=== PATIENT | male | born 1950 | race Caucasian/White ===

== ENCOUNTER 2016-12-31 11:49 | Inpatient (IN) | payer OTHER, BC ==
[~2016-12-31] VITALS: Ht 180.3 cm; Wt 54.1 kg
[~2016-12-31 11:49] MED LIST: ADVIL200 M1 PO; AMLODIPINE-BEN1 EACH PO; ASPIRIN325 MG PO; Aldactone PO; Allegra PO; Aspirin PO; Bentyl PO; CALTRATE600 MG PO; CIPRO500 M1 PO; CIPRO500 MG PO; DETROL; DETROL LA4 MG PO; EFFIENT10 MG PO; Effient PO; FEXOFENADINE H180 M1 PO; LIPITOR40 MG PO; LOTREL 10/21 CAPSULE PO; LOTREL PO; Lipitor PO; METOPROLOL SUCC50 MG PO; Metoprolol Succinate PO; NITROSTAT0.4 MG PO; Nitrostat PO; PROTONIX40 MG PO; Tylenol/Codeine #3 PO; ZOFRAN4 MG PO; Zofran PO
[2016-12-31 13:21] LABS: HEMATOCRIT 41.9 % (38.0-50.0); MCH 29.5 PG (29.0-34.0); MCHC 33.4 G/DL (30.0-36.0); MCV 88.4 FL (86-99); MEAN PLAT.VOLUME 8.7 uM^3 (9.0-12.4); PLATELET COUNT 378 K/uL (156-360); RBC DIS.WIDTH-CV 14.7 % (11.8-14.6); RBC DIS.WIDTH-SD 46.8 % (39-53); RED BLOOD COUNT 4.74 M/uL (4.00-5.50); WHITE BLOOD COUNT 10.7 K/uL (4.1-10.2)
[2016-12-31 13:32] LABS: CHLORIDE 104 mEq/L (99-109); POTASSIUM 4.2 mEq/L (3.7-5.4); SODIUM 135 mEq/L (136-147)
[2016-12-31 13:33] LABS: GLUCOSE 82 mg/dL (70-99)
[2016-12-31 13:35] LABS: ANION GAP 7 MEQ/L (2-14)
[2016-12-31 13:37] LABS: GFR ESTIMATE (CALCULATED) > 59 mL/min/
[2016-12-31 13:38] LABS: UREA NITROGEN (BUN) 11 mg/dL (9-23)
[2016-12-31 15:59] LABS: ADD MIUA? YES; BILIRUBIN NEGATIVE; BLOOD NEGATIVE; COLOR YELLOW ((YELLOW)); GLUCOSE (STRIP) NEGATIVE; KETONES NEGATIVE; LEUKOCYTES TRACE; NITRITE NEGATIVE; PROTEIN (STRIP) NEGATIVE; SPECIFIC GRAVITY 1.017 (1.000-1.030); UROBILINOGEN 0.2 MG/DL (0.2-1.0)
[2016-12-31 16:19] LABS: BACTERIA NONE SEEN /HPF; EPITHELIAL CELLS NONE SEEN /HPF; MUCUS 1+ /LPF; RED BLOOD CELLS 0-5 /HPF (0-5); UCUL ADDED? NO
[2016-12-31] MEDS ORDERED: FLONASE16 G1 BOTH NARES (17:38)
[2016-12-31] MEDS ORDERED: ASPIRIN325 MG PO (17:39)
[2016-12-31] MEDS ORDERED: LIPITOR40 MG PO (17:40)
[2016-12-31] MEDS ORDERED: VALSARTAN40 MG PO (17:40)
[2016-12-31] MEDS ORDERED: ALLEGRA ALLERG180 MG PO (17:41)
[2016-12-31] MEDS ORDERED: NITROSTAT0.4 MG SL (17:42)
[2016-12-31] MEDS ORDERED: METOPROLOL SUCC50 MG PO (17:42)
[2016-12-31] MEDS ORDERED: ALDACTONE25 MG PO (17:43)
[2016-12-31] MEDS ORDERED: EFFIENT10 MG PO (17:43)
[2016-12-31 20:43] LABS: TROP-I INTERPRETATION NEGATIVE; TROPONIN-I < 0.01 ng/mL (0.0-0.30)
[2016-12-31 21:32] VITALS: BP 126/70
[2017-01-01 00:08] VITALS: BP 92/50
[2017-01-01 04:19] VITALS: BP 119/58
[2017-01-01 06:50] LABS: HEMATOCRIT 36.6 % (38.0-50.0); MCH 30.2 PG (29.0-34.0); MCHC 33.6 G/DL (30.0-36.0); MCV 89.9 FL (86-99); MEAN PLAT.VOLUME 8.8 uM^3 (9.0-12.4); PLATELET COUNT 297 K/uL (156-360); RBC DIS.WIDTH-CV 14.5 % (11.8-14.6); RBC DIS.WIDTH-SD 47.7 % (39-53); RED BLOOD COUNT 4.07 M/uL (4.00-5.50)
[2017-01-01 06:55] LABS: WHITE BLOOD COUNT 4.4 K/uL (4.1-10.2)
[2017-01-01 06:58] LABS: ANION GAP 4 MEQ/L (2-14); CHLORIDE 106 MEQ/L (99-109); GFR ESTIMATE (CALCULATED) > 59 mL/min/; GLUCOSE 156 mg/dL (70-99); POTASSIUM 4.6 MEQ/L (3.7-5.4); SAMPLE HEMOLYSIS CHECK 0; SAMPLE ICTERIC CHECK 0; SAMPLE LIPEMIA CHECK 0; SODIUM 134 MEQ/L (136-147); UREA NITROGEN (BUN) 9 mg/dL (9-23)
[2017-01-01 06:59] LABS: TROP-I INTERPRETATION NEGATIVE; TROPONIN-I < 0.01 ng/mL (0.0-0.30)
[2017-01-01 08:32] VITALS: BP 105/72
[2017-01-01 11:51] VITALS: BP 113/68
[2017-01-01 13:44] LABS: TROP-I INTERPRETATION NEGATIVE; TROPONIN-I < 0.01 ng/mL (0.0-0.30)
[2017-01-01 20:10] VITALS: BP 114/67
[2017-01-02] VITALS (7 sets, daily range): BP systolic 91–121; BP diastolic 50–80
[2017-01-02 07:40] LABS: ANION GAP 6 MEQ/L (2-14); CHLORIDE 106 MEQ/L (99-109); GFR ESTIMATE (CALCULATED) > 59 mL/min/; GLUCOSE 137 mg/dL (70-99); POTASSIUM 4.6 MEQ/L (3.7-5.4); SAMPLE HEMOLYSIS CHECK 0; SAMPLE ICTERIC CHECK 0; SAMPLE LIPEMIA CHECK 0; SODIUM 136 MEQ/L (136-147); UREA NITROGEN (BUN) 12 mg/dL (9-23)
[2017-01-02 08:29] LABS: EOSINOPHIL (%) 0 % (0-5); HEMATOCRIT 36.3 % (38.0-50.0); IMMATURE GRANULOCYTE (%) 0.1 % (0.0-0.7); IMMATURE GRANULOCYTE COUNT 0.1 K/uL; LYMPHOCYTE COUNT 1.2 K/uL (1.0-2.8); MCHC 33.3 G/DL (30.0-36.0); MCV 89.9 FL (86-99); MEAN PLAT.VOLUME 8.7 uM^3 (9.0-12.4); MONOCYTE (%) 6.9 % (3-12); MONOCYTE COUNT 0.8 K/uL (0-0.8); NEUTROPHIL (%) 82.8 % (45-76); NEUTROPHIL COUNT 9.4 K/uL (1.8-6.4); PLATELET COUNT 369 K/uL (156-360); RBC DIS.WIDTH-CV 14.7 % (11.8-14.6); RBC DIS.WIDTH-SD 47.8 % (39-53); RED BLOOD COUNT 4.04 M/uL (4.00-5.50)
[2017-01-02 08:32] LABS: WHITE BLOOD COUNT 11.4 K/uL (4.1-10.2)
[2017-01-03 03:35] VITALS: BP 107/67
[2017-01-03 08:03] VITALS: BP 116/71
[2017-01-03 09:22] LABS: HEMATOCRIT 39.7 % (38.0-50.0); MCH 29.2 PG (29.0-34.0); MCHC 32.2 G/DL (30.0-36.0); MCV 90.4 FL (86-99); MEAN PLAT.VOLUME 8.8 uM^3 (9.0-12.4); PLATELET COUNT 365 K/uL (156-360); RBC DIS.WIDTH-SD 49.6 % (39-53); RED BLOOD COUNT 4.39 M/uL (4.00-5.50); WHITE BLOOD COUNT 11.7 K/uL (4.1-10.2)
[2017-01-03 09:53] LABS: ANION GAP 7 MEQ/L (2-14); CHLORIDE 102 MEQ/L (99-109); GFR ESTIMATE (CALCULATED) > 59 mL/min/; GLUCOSE 162 mg/dL (70-99); SAMPLE HEMOLYSIS CHECK 0; SAMPLE ICTERIC CHECK 0; SAMPLE LIPEMIA CHECK 0; SODIUM 136 MEQ/L (136-147); UREA NITROGEN (BUN) 13 mg/dL (9-23)
[2017-01-03] MEDS ORDERED: AZITHROMYCIN500 M1 PO (11:30)
[2017-01-03] MEDS ORDERED: SPIRIVA RESPIMAT4 GM IH (11:30)
[2017-01-03] MEDS ORDERED: PREDNISONE10 MG PO (11:30)
[2017-01-03 12:14] VITALS: BP 115/70
== END 2017-01-03 12:37 | disposition home or self-care (01) | DRG 191 ==
LOC: EME 11:49 → EDOF 19:28 → 4SOUTH 19:28
PROVIDERS: Hospitalist; Physician Assistant; Physician Assistant Medical; Student in an Organized Health Care Education/Training Program
DX: J44.1 Chronic obstructive pulmonary disease with (acute) exacerbation (principal); R07.89 Other chest pain; C43.9 Malignant melanoma of skin, unspecified; R91.8 Other nonspecific abnormal finding of lung field; E78.5 Hyperlipidemia, unspecified; I50.9 Heart failure, unspecified; I25.10 Atherosclerotic heart disease of native coronary artery without angina pectoris; Z95.5 Presence of coronary angioplasty implant and graft; I10 Essential (primary) hypertension; I25.2 Old myocardial infarction; F17.210 Nicotine dependence, cigarettes, uncomplicated; Z92.21 Personal history of antineoplastic chemotherapy; C79.89 Secondary malignant neoplasm of other specified sites; C78.01 Secondary malignant neoplasm of right lung
CPT/HCPCS: 71020; 71275; 80048; 81003; 83880; 84484; 85025; 85027; 87070; 87205; 93005; 93306; 94640; 94640 76; 94799; 99202; 99281; 99285; J1650; J2920; J2930; J7030; J7512

== ENCOUNTER 2017-03-03 05:49 | Inpatient (IN) | payer OTHER, BC ==
[2017-03-03] VITALS (20 sets, daily range): BP systolic 84–116; BP diastolic 53–79
[~2017-03-03] VITALS: Ht 180.3 cm; Wt 70.2 kg
[~2017-03-03 05:49] MED LIST changes: +ALDACTONE25 MG PO; +ALLEGRA ALLERG180 MG PO; +AZITHROMYCIN500 M1 PO; +FLONASE16 G1 BOTH NARES; +NITROSTAT0.4 MG SL; +PREDNISONE10 MG PO; +SPIRIVA RESPIMAT4 GM IH; +VALSARTAN40 MG PO
[2017-03-03 06:12] LABS: AMYLASE 50 IU/L (1-118); CHLORIDE 105 mEq/L (99-109); POTASSIUM 4.6 mEq/L (3.7-5.4); SODIUM 135 mEq/L (136-147)
[2017-03-03 06:14] LABS: GLUCOSE 101 mg/dL (70-99)
[2017-03-03 06:15] LABS: ANION GAP 9 MEQ/L (2-14)
[2017-03-03 06:17] LABS: SERUM ETHYL ALCOHOL < 10 mg/dL
[2017-03-03 06:18] LABS: GFR ESTIMATE (CALCULATED) > 59 mL/min/
[2017-03-03 06:19] LABS: UREA NITROGEN (BUN) 12 mg/dL (9-23)
[2017-03-03 06:21] LABS: LIPASE 21 U/L (1.0-51.0)
[2017-03-03 06:24] LABS: EOSINOPHIL (%) 0.6 % (0-5); EOSINOPHIL COUNT 0.1 K/uL (0-0.3); HEMATOCRIT 39.6 % (38.0-50.0); IMMATURE GRANULOCYTE (%) 0.5 % (0.0-0.7); IMMATURE GRANULOCYTE COUNT 0.1 K/uL; INSTRUMENT ABS NEUTROPHIL CT 7.3 K/uL; LYMPHOCYTE COUNT 1.4 K/uL (1.0-2.8); MCHC 34.1 G/DL (30.0-36.0); MEAN PLAT.VOLUME 8.5 uM^3 (9.0-12.4); MONOCYTE (%) 12.3 % (3-12); MONOCYTE COUNT 1.2 K/uL (0-0.8); NEUTROPHIL (%) 72.6 % (45-76); NEUTROPHIL COUNT 7.3 K/uL (1.8-6.4); PLATELET COUNT 275 K/uL (156-360); RBC DIS.WIDTH-CV 14.2 % (11.8-14.6); RBC DIS.WIDTH-SD 47.8 % (39-53); RED BLOOD COUNT 4.35 M/uL (4.00-5.50); TROP-I INTERPRETATION NEGATIVE; TROPONIN-I 0.03 ng/mL (0.0-0.30)
[2017-03-03 06:36] LABS: PROTHROMBIN TIME 10.6 (9.2-11.2); PTT 29.8 (25-32)
[2017-03-03 08:35] LABS: METH RESISTANT S AUREUS PCR NEGATIVE (NEGATIVE)
[2017-03-03 08:37] LABS: PROBE CHECK PASS; SPECIMEN PROCESSING CONTROL PASS
[2017-03-03 16:58] LABS: ADD MIUA? NO; BILIRUBIN NEGATIVE; BLOOD NEGATIVE; COLOR YELLOW ((YELLOW)); GLUCOSE (STRIP) NEGATIVE; KETONES NEGATIVE; LEUKOCYTES NEGATIVE; NITRITE NEGATIVE; PROTEIN (STRIP) NEGATIVE; SPECIFIC GRAVITY 1.028 (1.000-1.030); UCUL ADDED? NO; UROBILINOGEN 0.2 MG/DL (0.2-1.0)
[2017-03-03 18:25] LABS: TROP-I INTERPRETATION POSITIVE; TROPONIN-I 5.08 ng/mL (0.0-0.30)
[2017-03-04] VITALS (10 sets, daily range): BP systolic 87–110; BP diastolic 58–73
[2017-03-04 00:50] LABS: TROP-I INTERPRETATION POSITIVE; TROPONIN-I 4.27 ng/mL (0.0-0.30)
[2017-03-04 05:44] LABS: EOSINOPHIL (%) 1.2 % (0-5); EOSINOPHIL COUNT 0.1 K/uL (0-0.3); IMMATURE GRANULOCYTE (%) 0.2 % (0.0-0.7); INSTRUMENT ABS NEUTROPHIL CT 6.4 K/uL; LYMPHOCYTE COUNT 1.1 K/uL (1.0-2.8); MCH 30.7 PG (29.0-34.0); MCV 93.2 FL (86-99); MEAN PLAT.VOLUME 8.6 uM^3 (9.0-12.4); MONOCYTE (%) 10.7 % (3-12); MONOCYTE COUNT 0.9 K/uL (0-0.8); NEUTROPHIL (%) 74.7 % (45-76); NEUTROPHIL COUNT 6.4 K/uL (1.8-6.4); PLATELET COUNT 255 K/uL (156-360); RBC DIS.WIDTH-CV 14.3 % (11.8-14.6); RBC DIS.WIDTH-SD 49.4 % (39-53); RED BLOOD COUNT 3.97 M/uL (4.00-5.50); WHITE BLOOD COUNT 8.5 K/uL (4.1-10.2)
[2017-03-04 06:21] LABS: ANION GAP 6 MEQ/L (2-14); CHLORIDE 105 MEQ/L (99-109); GFR ESTIMATE (CALCULATED) > 59 mL/min/; GLUCOSE 110 mg/dL (70-99); SAMPLE HEMOLYSIS CHECK 0; SAMPLE ICTERIC CHECK 0; SAMPLE LIPEMIA CHECK 0; SODIUM 136 MEQ/L (136-147); UREA NITROGEN (BUN) 10 mg/dL (9-23)
[2017-03-04 06:50] LABS: TROP-I INTERPRETATION POSITIVE; TROPONIN-I 3.41 ng/mL (0.0-0.30)
[2017-03-04] MEDS ORDERED: ASPIR-LOW81 MG PO ×2 (09:47→10:45)
[2017-03-04] MEDS ORDERED: BRILINTA90 MG PO ×2 (09:47→10:45)
[2017-03-04 16:17] LABS: AMPHETAMINES QUANT VALUE 0 NG/ML; BARBITUATES QUANT VALUE 0 NG/ML; BENZODIAZEPINES, URINE SCREEN POSITIVE (200 ng/mL); MARIJUANA QUANT VALUE 0 NG/ML; OPIATES QUANTITATIVE VALUE 0 NG/ML; PHENCYCLIDINE QUANT VALUE 0 NG/ML
== END 2017-03-04 11:44 | disposition home or self-care (01) | DRG 246 ==
LOC: EME → EDBD 05:49 → EME 06:05 → CATH 06:05 → 2SOUTH 06:50 → 4WEST 07:02
PROVIDERS: Emergency Medicine; Internal Medicine Cardiovascular Disease
DX: I21.09 ST elevation (STEMI) myocardial infarction involving other coronary artery of anterior wall (principal); I47.2 Ventricular tachycardia; I26.99 Other pulmonary embolism without acute cor pulmonale; I25.10 Atherosclerotic heart disease of native coronary artery without angina pectoris; I21.3 ST elevation (STEMI) myocardial infarction of unspecified site; F17.200 Nicotine dependence, unspecified, uncomplicated; C43.9 Malignant melanoma of skin, unspecified; R91.8 Other nonspecific abnormal finding of lung field; Z79.01 Long term (current) use of anticoagulants; Z95.5 Presence of coronary angioplasty implant and graft
CPT/HCPCS: 80048; 80306 90; 81003; 82150; 83605; 83690; 84484; 85025; 85347; 85610; 85730; 86850; 86900; 86901; 87040; 87641; 93005; 94799; 99281; 99285; C1725; C1760; C1769; C1874; C1887; C1894; G0480; J0461; J1644; J1650; J2250; J2405; J3010; J3246; J7030

== ENCOUNTER 2017-07-26 12:41 | Emergency (ER) | payer OTHER, BC ==
[~2017-07-26] VITALS: Ht 180.3 cm; Wt 70.5 kg
[~2017-07-26 12:41] MED LIST changes: +ASPIR-LOW81 MG PO; +BRILINTA90 MG PO
[2017-07-26 14:57] LABS: HEMATOCRIT 43.7 % (38.0-50.0); MCH 29.1 PG (29.0-34.0); MCV 88.5 FL (86-99); MEAN PLAT.VOLUME 8.6 uM^3 (9.0-12.4); PLATELET COUNT 269 K/uL (156-360); RBC DIS.WIDTH-CV 14.1 % (11.8-14.6); RBC DIS.WIDTH-SD 45.7 % (39-53); RED BLOOD COUNT 4.94 M/uL (4.00-5.50); WHITE BLOOD COUNT 9.4 K/uL (4.1-10.2)
[2017-07-26 15:04] LABS: CHLORIDE 101 mEq/L (99-109)
[2017-07-26 15:05] LABS: POTASSIUM 3.8 mEq/L (3.7-5.4); SODIUM 134 mEq/L (136-147)
[2017-07-26 15:06] LABS: GLUCOSE 110 mg/dL (70-99)
[2017-07-26 15:08] LABS: ANION GAP 9 MEQ/L (2-14)
[2017-07-26 15:10] LABS: GFR ESTIMATE (CALCULATED) > 59 mL/min/
[2017-07-26 15:11] LABS: UREA NITROGEN (BUN) 10 mg/dL (9-23)
[2017-07-26 20:17] VITALS: BP 129/86
== END 2017-07-26 20:18 | disposition home or self-care (01) ==
LOC: EME 12:41
PROVIDERS: Physician Assistant Medical
DX: C43.9 Malignant melanoma of skin, unspecified (principal); J44.9 Chronic obstructive pulmonary disease, unspecified; E78.5 Hyperlipidemia, unspecified; I10 Essential (primary) hypertension; Z95.5 Presence of coronary angioplasty implant and graft; Z86.73 Personal history of transient ischemic attack (TIA), and cerebral infarction without residual deficits; F17.200 Nicotine dependence, unspecified, uncomplicated
CPT/HCPCS: 71260; 80048; 85027; 99281; 99285; J7030

== ENCOUNTER 2017-10-15 13:29 | Inpatient (IN) | payer OTHER, BC ==
[~2017-10-15] VITALS: Ht 180.3 cm; Wt 63.5 kg
[2017-10-15 15:04] LABS: EOSINOPHIL (%) 0.3 % (0-5); HEMATOCRIT 35.3 % (38.0-50.0); IMMATURE GRANULOCYTE (%) 0.5 % (0.0-0.7); IMMATURE GRANULOCYTE COUNT 0.1 K/uL; INSTRUMENT ABS NEUTROPHIL CT 9.8 K/uL; LYMPHOCYTE COUNT 1.3 K/uL (1.0-2.8); MCH 29.6 PG (29.0-34.0); MCHC 34.3 G/DL (30.0-36.0); MCV 86.3 FL (86-99); MONOCYTE (%) 11.9 % (3-12); MONOCYTE COUNT 1.5 K/uL (0-0.8); NEUTROPHIL (%) 76.9 % (45-76); NEUTROPHIL COUNT 9.8 K/uL (1.8-6.4); PLATELET COUNT 404 K/uL (156-360); RBC DIS.WIDTH-SD 43.9 % (39-53); RED BLOOD COUNT 4.09 M/uL (4.00-5.50); WHITE BLOOD COUNT 12.7 K/uL (4.1-10.2)
[2017-10-15 15:12] LABS: CHLORIDE 96 mEq/L (99-109); POTASSIUM 4.1 mEq/L (3.7-5.4); SODIUM 129 mEq/L (136-147)
[2017-10-15 15:14] LABS: GLUCOSE 104 mg/dL (70-99)
[2017-10-15 15:15] LABS: ANION GAP 10 MEQ/L (2-14)
[2017-10-15 15:18] LABS: GFR ESTIMATE (CALCULATED) > 59 mL/min/
[2017-10-15 15:19] LABS: UREA NITROGEN (BUN) 9 mg/dL (9-23)
[2017-10-15] MEDS ORDERED: LO-DOSE ASPIRIN81 M2 PO (18:23)
[2017-10-15] MEDS ORDERED: TYLENOL EXTRA500 MG PO (18:24)
[2017-10-15] MEDS ORDERED: SALINE NASAL SP45 ML BOTH NARES (18:25)
[2017-10-15] MEDS ORDERED: PLAVIX75 MG PO (18:26)
[2017-10-15] MEDS ORDERED: ATIVAN1 MG PO (18:27)
[2017-10-15 21:46] LABS: HEMATOCRIT 33.8 % (38.0-50.0); MCH 29.9 PG (29.0-34.0); MCHC 34.3 G/DL (30.0-36.0); MCV 87.1 FL (86-99); MEAN PLAT.VOLUME 7.9 uM^3 (9.0-12.4); PLATELET COUNT 487 K/uL (156-360); RBC DIS.WIDTH-SD 44.5 % (39-53); RED BLOOD COUNT 3.88 M/uL (4.00-5.50); WHITE BLOOD COUNT 10.4 K/uL (4.1-10.2)
[2017-10-15 22:00] LABS: Estimated Average Glucose 148 mg/dL (70-123); HEMOGLOBIN A1c (GLYCOHEMOGLOB) 6.8 % HGB (Below 5.7)
[2017-10-15 22:14] LABS: HDL CHOLESTEROL 26 MG/DL (Desirable>=40); LDL CHOLESTEROL 88 mg/dL (Desirable<100); NON-HDL CHOLESTEROL 108 mg/dL (Desirable<160); TOTAL CHOLESTEROL 134 mg/dL (Desirable<200); TRIGLYCERIDES 101 MG/DL (Normal: <150)
[2017-10-15 22:20] VITALS: BP 129/72
[2017-10-15 23:32] LABS: ADD MIUA? NO; BILIRUBIN NEGATIVE; BLOOD NEGATIVE; COLOR YELLOW ((YELLOW)); GLUCOSE (STRIP) NEGATIVE; KETONES NEGATIVE; LEUKOCYTES NEGATIVE; NITRITE NEGATIVE; PROTEIN (STRIP) NEGATIVE; SPECIFIC GRAVITY 1.044 (1.000-1.030); UCUL ADDED? NO
[2017-10-16 04:05] VITALS: BP 109/72
[2017-10-16 07:54] VITALS: BP 109/69
[2017-10-16 08:01] VITALS: BP 110/66
[2017-10-16 09:48] LABS: ANION GAP 11 MEQ/L (2-14); CHLORIDE 99 MEQ/L (99-109); GFR ESTIMATE (CALCULATED) > 59 mL/min/; POTASSIUM 4.8 MEQ/L (3.7-5.4); SAMPLE HEMOLYSIS CHECK 0; SAMPLE ICTERIC CHECK 0; SAMPLE LIPEMIA CHECK 0; SODIUM 131 MEQ/L (136-147); UREA NITROGEN (BUN) 10 mg/dL (9-23)
[2017-10-16 10:00] LABS: GLUCOSE 216 mg/dL (70-99)
[2017-10-16 12:10] VITALS: BP 113/68
[2017-10-16 17:21] VITALS: BP 117/71
[2017-10-16 19:31] VITALS: BP 107/64
[2017-10-17 00:45] VITALS: BP 117/71
[2017-10-17 05:37] VITALS: BP 117/62
[2017-10-17 05:58] LABS: ANION GAP 8 MEQ/L (2-14); CHLORIDE 97 MEQ/L (99-109); GFR ESTIMATE (CALCULATED) > 59 mL/min/; GLUCOSE 157 mg/dL (70-99); POTASSIUM 4.6 MEQ/L (3.7-5.4); SAMPLE HEMOLYSIS CHECK 0; SAMPLE ICTERIC CHECK 0; SAMPLE LIPEMIA CHECK 0; SODIUM 130 MEQ/L (136-147); UREA NITROGEN (BUN) 8 mg/dL (9-23)
[2017-10-17 08:15] VITALS: BP 111/63
[2017-10-17 12:00] VITALS: BP 119/68
[2017-10-17 15:55] VITALS: BP 100/59
[2017-10-17 19:23] VITALS: BP 112/55
[2017-10-18 01:04] VITALS: BP 110/64
[2017-10-18 08:52] VITALS: BP 119/75
[2017-10-18] MEDS ORDERED: LOPRESSOR25 MG PO (11:49)
[2017-10-18] MEDS ORDERED: FAMOTIDINE20 MG PO (11:50)
[2017-10-18] MEDS ORDERED: DECADRON2 MG PO (11:58)
== END 2017-10-18 13:59 | disposition home health service (06) | DRG 54 ==
LOC: EME 13:29 → EDOF 21:01 → 4EAST 21:01 → ENRESERV 21:02 → 4EAST 21:58
PROVIDERS: Emergency Medicine; Hospitalist
DX: C79.31 Secondary malignant neoplasm of brain (principal); I61.9 Nontraumatic intracerebral hemorrhage, unspecified; G93.5 Compression of brain; G93.6 Cerebral edema; C77.9 Secondary and unspecified malignant neoplasm of lymph node, unspecified; C78.01 Secondary malignant neoplasm of right lung; C78.02 Secondary malignant neoplasm of left lung; E87.1 Hypo-osmolality and hyponatremia; I11.0 Hypertensive heart disease with heart failure; I50.9 Heart failure, unspecified; I47.1 Supraventricular tachycardia; I48.91 Unspecified atrial fibrillation; E86.1 Hypovolemia; E86.0 Dehydration; J44.9 Chronic obstructive pulmonary disease, unspecified; I25.10 Atherosclerotic heart disease of native coronary artery without angina pectoris; E78.5 Hyperlipidemia, unspecified; I25.5 Ischemic cardiomyopathy; F17.200 Nicotine dependence, unspecified, uncomplicated; I25.2 Old myocardial infarction; Z95.0 Presence of cardiac pacemaker; Z95.5 Presence of coronary angioplasty implant and graft; Z79.82 Long term (current) use of aspirin; Z86.711 Personal history of pulmonary embolism; Z86.73 Personal history of transient ischemic attack (TIA), and cerebral infarction without residual deficits; Z92.3 Personal history of irradiation; Z85.820 Personal history of malignant melanoma of skin
CPT/HCPCS: 70470; 71010; 80048; 80061; 81003; 83036; 85025; 85027; 85730; 93005; 99281; 99285; J1100; J2405; J7030; S0028

== ENCOUNTER 2017-10-22 13:14 | Observation (INO) | payer OTHER, BC ==
[~2017-10-22] VITALS: Ht 180.3 cm; Wt 63.7 kg
[~2017-10-22 13:14] MED LIST changes: +ATIVAN1 MG PO; +DECADRON2 MG PO; +FAMOTIDINE20 MG PO; +LO-DOSE ASPIRIN81 M2 PO; +LOPRESSOR25 MG PO; +PLAVIX75 MG PO; +SALINE NASAL SP45 ML BOTH NARES; +TYLENOL EXTRA500 MG PO
[2017-10-22 13:35] LABS: EOSINOPHIL (%) 0 % (0-5); HEMATOCRIT 41.6 % (38.0-50.0); IMMATURE GRANULOCYTE (%) 1.3 % (0.0-0.7); IMMATURE GRANULOCYTE COUNT 0.3 K/uL; INSTRUMENT ABS NEUTROPHIL CT 19.3 K/uL; MCH 29.3 PG (29.0-34.0); MCHC 33.9 G/DL (30.0-36.0); MCV 86.5 FL (86-99); MEAN PLAT.VOLUME 8.1 uM^3 (9.0-12.4); MONOCYTE (%) 8.6 % (3-12); MONOCYTE COUNT 1.9 K/uL (0-0.8); NEUTROPHIL (%) 85.6 % (45-76); NEUTROPHIL COUNT 19.3 K/uL (1.8-6.4); PLATELET COUNT 387 K/uL (156-360); RBC DIS.WIDTH-CV 14.5 % (11.8-14.6); RBC DIS.WIDTH-SD 45.2 % (39-53); WHITE BLOOD COUNT 22.5 K/uL (4.1-10.2)
[2017-10-22 13:37] LABS: RED BLOOD COUNT 4.81 M/uL (4.00-5.50)
[2017-10-22 13:42] LABS: AMYLASE 59 IU/L (1-118); CHLORIDE 96 mEq/L (99-109); POTASSIUM 4.9 mEq/L (3.7-5.4); PTT 27.9 SEC (25-37); SODIUM 130 mEq/L (136-147)
[2017-10-22 13:44] LABS: GLUCOSE 165 mg/dL (70-99)
[2017-10-22 13:45] LABS: ANION GAP 12 MEQ/L (2-14)
[2017-10-22 13:47] LABS: SERUM ETHYL ALCOHOL < 10 mg/dL
[2017-10-22 13:48] LABS: GFR ESTIMATE (CALCULATED) > 59 mL/min/
[2017-10-22 13:49] LABS: UREA NITROGEN (BUN) 16 mg/dL (9-23)
[2017-10-22 13:51] LABS: LIPASE 25 U/L (1.0-51.0)
[2017-10-22 13:55] LABS: TROP-I INTERPRETATION POSITIVE
[2017-10-22 13:59] LABS: TROPONIN-I 2.33 ng/mL (0.0-0.30)
[2017-10-22] MEDS ORDERED: DECADRON1 MG PO (16:23)
[2017-10-22] MEDS ORDERED: FAMOTIDINE20 MG PO (16:24)
[2017-10-22] MEDS ORDERED: LOPRESSOR25 MG PO (16:29)
[2017-10-22 18:31] LABS: TROP-I INTERPRETATION POSITIVE
[2017-10-22 18:33] LABS: TROPONIN-I 5.12 ng/mL (0.0-0.30)
[2017-10-22 20:42] VITALS: BP 97/65
[2017-10-22 23:07] LABS: TROP-I INTERPRETATION POSITIVE; TROPONIN-I 11.17 ng/mL (0.0-0.30)
[2017-10-22 23:33] VITALS: BP 106/70
[2017-10-23 03:50] VITALS: BP 110/71
[2017-10-23 05:25] LABS: HEMATOCRIT 36.9 % (38.0-50.0); MCH 29.8 PG (29.0-34.0); MCHC 33.9 G/DL (30.0-36.0); MCV 88.1 FL (86-99); MEAN PLAT.VOLUME 8.3 uM^3 (9.0-12.4); PLATELET COUNT 340 K/uL (156-360); RBC DIS.WIDTH-CV 14.6 % (11.8-14.6); RBC DIS.WIDTH-SD 46.5 % (39-53); RED BLOOD COUNT 4.19 M/uL (4.00-5.50); WHITE BLOOD COUNT 17.1 K/uL (4.1-10.2)
[2017-10-23 05:49] LABS: ANION GAP 8 MEQ/L (2-14); CHLORIDE 94 MEQ/L (99-109); GFR ESTIMATE (CALCULATED) > 59 mL/min/; GLUCOSE 163 mg/dL (70-99); POTASSIUM 4.9 MEQ/L (3.7-5.4); SAMPLE HEMOLYSIS CHECK 1; SAMPLE ICTERIC CHECK 0; SAMPLE LIPEMIA CHECK 0; SODIUM 128 MEQ/L (136-147); UREA NITROGEN (BUN) 13 mg/dL (9-23)
[2017-10-23 07:50] VITALS: BP 110/70
[2017-10-23 10:44] LABS: ADD MIUA? YES; BILIRUBIN NEGATIVE; BLOOD NEGATIVE; COLOR YELLOW ((YELLOW)); GLUCOSE (STRIP) 150; KETONES NEGATIVE; LEUKOCYTES NEGATIVE; NITRITE NEGATIVE; PROTEIN (STRIP) NEGATIVE; SPECIFIC GRAVITY 1.012 (1.000-1.030); UROBILINOGEN 0.2 MG/DL (0.2-1.0)
[2017-10-23 10:59] LABS: BACTERIA NONE SEEN /HPF; EPITHELIAL CELLS NONE SEEN /HPF; MUCUS NONE SEEN /LPF; RED BLOOD CELLS 0-5 /HPF (0-5); UCUL ADDED? NO; WHITE BLOOD CELLS 0-5 /HPF (0-5)
[2017-10-23 12:00] VITALS: BP 110/71
[2017-10-23 16:00] VITALS: BP 101/68
[2017-10-23 20:05] VITALS: BP 97/62
[2017-10-24 00:15] VITALS: BP 102/59
[2017-10-24 04:11] VITALS: BP 103/66
[2017-10-24 09:00] VITALS: BP 113/67
[2017-10-24] MEDS ORDERED: HYOSCYAMINE0.125 M2 PO ×2 (11:06→12:23)
[2017-10-24] MEDS ORDERED: ATIVAN0.5 MG PO (11:07)
[2017-10-24] MEDS ORDERED: MORPHINE CON20 MG/M1 PO (11:07)
[2017-10-24] MEDS ORDERED: NICOTINE PATCH1 EAC1 TD (12:02)
== END 2017-10-24 12:45 | disposition home or self-care (01) ==
LOC: EME 13:14 → ENRESERV 13:25 → CANRESERV 15:07 → ENRESERV 15:07 → EDOF 15:28 → 4EAST 15:28 → ENRESERV 19:56 → 4EAST 20:44 → ENPENDDIS 10-24 → 4EAST 10-24 12:45
PROVIDERS: Emergency Medicine; Hospitalist
DX: I21.09 ST elevation (STEMI) myocardial infarction involving other coronary artery of anterior wall (principal); C79.31 Secondary malignant neoplasm of brain; C43.9 Malignant melanoma of skin, unspecified; I61.8 Other nontraumatic intracerebral hemorrhage; I25.10 Atherosclerotic heart disease of native coronary artery without angina pectoris; I25.5 Ischemic cardiomyopathy; I48.0 Paroxysmal atrial fibrillation; I47.2 Ventricular tachycardia; I11.0 Hypertensive heart disease with heart failure; I50.9 Heart failure, unspecified; Z95.5 Presence of coronary angioplasty implant and graft; Z95.810 Presence of automatic (implantable) cardiac defibrillator; J44.9 Chronic obstructive pulmonary disease, unspecified; E78.5 Hyperlipidemia, unspecified; Z86.73 Personal history of transient ischemic attack (TIA), and cerebral infarction without residual deficits; F17.200 Nicotine dependence, unspecified, uncomplicated
CPT/HCPCS: 80048; 81003; 82150; 83690; 84484; 85025; 85027; 85610; 85730; 86850; 86900; 86901; 86920; 93005; 99281; 99285; G0378; G0480; G8978 GP CJ; G8979 GP CH; G8980 CJ; J2270; J2405; J3010; J8540